=== PATIENT | male | born 1985 | race Caucasian/White ===

== ENCOUNTER 2022-11-28 16:03 | Emergency (ER) | payer MEDICAID ==
[~2022-11-28] VITALS: Ht 172.7 cm; Wt 88.5 kg
[2022-11-28 16:08] VITALS: BP_SYST 149
--- NOTE | 2022-11-28 16:15 | NUR ---
PT BIB SELF FROM HOME C/O SOB WITH CHEST WALL PAIN. PT IS AAOX3, SKIN INTACT, ARNALDO. HISTORY OF HTN.
[2022-11-28] MEDS ORDERED: ALPRAZolam 0.25 MG TABLET PO ONE (16:30)
--- NOTE | 2022-11-28 16:30 | NUR ---
ER at bedside examining patient.
[2022-11-28] MEDS ORDERED: ALPR0.5T PO (17:31)
--- NOTE | 2022-11-28 17:35 | NUR ---
Patient given written and verbal discharge instructions and verbalizes understanding. ER MD discussed with patient the results and treatment provided. Patient in stable condition. ID arm band removed. Rx of BENADRYL given. Patient educated on pain management and to follow up with PMD. Opportunity for questions provided and answered. Medication side effect fact sheet provided.
[2022-11-28 17:59] VITALS: BP_SYST 149
== END 2022-11-28 17:59 | disposition home or self-care (01) ==
LOC: SED 16:03
DX: F41.9 Anxiety disorder, unspecified (principal); R06.4 Hyperventilation; R06.02 Shortness of breath; R42 Dizziness and giddiness; R00.2 Palpitations; Z79.899 Other long term (current) drug therapy
CPT/HCPCS: 71045; 93005; 99283